=== PATIENT | male | born 1965 | race Caucasian/White ===

== ENCOUNTER 2022-04-26 10:14 | Outpatient (CLI) | payer OTHER, SELFPAY ==
--- NOTE | 2022-04-26 11:43 | W.ANESCHARGE ---
Anesthesia Charges Start Date/Time Anesthesia Start Date: 04/26/22 Anesthesia Start Time: 11:00 Stop Date/Time Anesthesia Stop Date: 04/26/22 Anesthesia Stop Time: 11:40 Summary Emergency: No
--- NOTE | 2022-04-26 14:34 | W.ANESCHARGE ---
Anesthesia Charges Start Date/Time Anesthesia Start Date: 04/26/22 Anesthesia Start Time: 11:00 Stop Date/Time Anesthesia Stop Date: 04/26/22 Anesthesia Stop Time: 11:40 Summary Emergency: No
== END 2022-04-26 10:15 | disposition home or self-care (01) ==
LOC: OP CLINIC 10:15
PROVIDERS: PCP Family Medicine; Visit Provider Surgery
DX: Z12.11 Encounter for screening for malignant neoplasm of colon (principal); K63.5 Polyp of colon; Z86.010 Personal history of colon polyps
CPT/HCPCS: 45385; 811; 88305; J2704

== ENCOUNTER 2023-06-24 10:11 | Outpatient (CLI) | payer OTHER, SELFPAY | END 2023-06-24 10:12 | disposition home or self-care (01) | PROVIDERS: PCP Family Medicine; Visit Provider Family Medicine | DX: Z00.00 Encounter for general adult medical examination without abnormal findings (principal); I10 Essential (primary) hypertension; E78.5 Hyperlipidemia, unspecified; Z12.5 Encounter for screening for malignant neoplasm of prostate | CPT/HCPCS: 80048; 80061; 84153 ==

== ENCOUNTER 2024-11-15 09:36 | Outpatient (CLI) | payer OTHER, SELFPAY | END 2024-11-15 09:37 | disposition home or self-care (01) | PROVIDERS: PCP Family Medicine; Visit Provider Family Medicine | DX: I10 Essential (primary) hypertension (principal); E78.00 Pure hypercholesterolemia, unspecified; Z12.5 Encounter for screening for malignant neoplasm of prostate | CPT/HCPCS: 80048; 80061; G0103 ==